=== PATIENT | male | born 1990 | race Caucasian/White ===

== ENCOUNTER 2020-05-12 17:13 | Emergency (ER) | payer OTHER, SELFPAY ==
[2020-05-12 17:11] VITALS: BP 151/96; PULSE 114; RESP 25; TEMP 36.4; O2SAT 97
[2020-05-12 17:21] VITALS: RESP 17
--- NOTE | 2020-05-12 17:21 | ED_ITS ---
HPI - Overdose General Chief Complaint: Overdose Stated Complaint: unresponsive History of Present Illness HPI Narrative: Found unresponsive in a car. Given narcan, 4 mg intranasal and 4 mg IV. On arrival to the ED he admits to putting a bag of heroin in his rectum. He denies trying to harm himself. Related Data Home Medications Medication Instructions Recorded Confirmed No Home Medications 05/12/20 05/12/20 Allergies Allergy/AdvReac Type Severity Reaction Status Date / Time No Known Allergies Allergy Unverified 09/23/13 14:24 Review of Systems Review of Systems: All systems reviewed & are unremarkable except as noted in HPI and below Cardiovascular: Cardiovascular: Denies chest pain Respiratory: Respiratory: Denies dyspnea Gastrointestinal: Gastrointestinal: Denies abdominal pain and Denies nausea PMFSH Past Medical History Medical History (Updated 05/13/20 @ 00:00 by Alli Gonzáles) Heroin abuse Social History Social History (Updated 05/12/20 @ 17:29 by Yusef Cruz MD) Substance use: current Substance use type: heroin Exam Const: General: alert Nutritional Appearance: well nourished HENMT: Other: abrasions to the right forehead Eyes: Pupils: Equal, round and reactive pupils present Resp: Effort & Inspection: normal respiratory effort Auscultation: clear to auscultation bilaterally Cardio: Rate: tachycardic Rhythm: regular rhythm GI: GI Palp: Yes Soft to palpation and No Tenderness to palpation present (GI) Neuro: General: moves all extremities and CN's II-XI intact bilaterally Other: mumbled difficult to understand speech Extrem: General: normal to inspection Course Vital Signs Vital signs: Vital Signs Temperature 36.4 C 05/12/20 17:11 Pulse Rate 114 H 05/12/20 17:11 Respiratory Rate 25 H 05/12/20 17:11 Blood Pressure 151/96 H 05/12/20 17:11 Pulse Oximetry 97 05/12/20 17:11 Temperature 36.4 C 05/12/20 17:11 Pulse Rate 115 H 05/12/20 19:11 Respiratory Rate 18 05/12/20 19:11 Blood Pressure 147/94 H 05/12/20 19:11 Pulse Oximetry 95 05/12/20 19:11 MDM - Overdose MDM Narrative Medical decision making narrative: He was able to extract the heroin under supervision. It was collected and given to security. Medical Records Attestation: I reviewed the patient's medical records. Lab Data Attestation: I reviewed the patient's lab results. Discharge Plan Discharge Clinical Impression: Heroin overdose Patient Disposition: Home, Self-Care Condition: Stable Instructions: Adult Overdose (ED) Prescriptions: No Action No Home Medications RF: 0 Follow-up/Referrals: Jake Saeed MD [Physician] - PHYSICIAN,BUSINESS INFORMATION ANALYST [Primary Care Provider] -
--- NOTE | 2020-05-12 17:23 | PC.NURSE ---
PT HAS SUCCESSFULLY SELF REMOVED HEROINE BAGGY FROM HIS RECTUM AT THIS TIME, RN SUSHILA, MYSELF, BRAN SOL AND RIMMA SMART AT BEDSIDE.
[2020-05-12 17:43] VITALS: BP 160/100; PULSE 116; RESP 16; O2SAT 100
[2020-05-12 19:11] VITALS: BP 147/94; PULSE 115; RESP 18; O2SAT 95
== END 2020-05-12 19:12 | disposition home or self-care (01) ==
PROVIDERS: Emergency Provider Emergency Medicine
DX: T40.1X1A Poisoning by heroin, accidental (unintentional), initial encounter (principal)
CPT/HCPCS: 99281

== ENCOUNTER 2020-10-07 15:52 | Emergency (ER) | payer OTHER, SELFPAY ==
--- NOTE | 2020-10-07 16:04 | ED.URI ---
HPI - URI/Sore Throat General Chief Complaint: Upper Respiratory Infection Stated Complaint: Body Fatigue,Fever Source: patient Mode of arrival: ambulatory Limitations: no limitations History of Present Illness HPI Narrative: Patient is a 30-year-old male who presents complaining of sore throat, body aches, congestion, fever and malaise x2 days. Patient has no known exposure to Covid does work out the home. He denies taking [id number] meds for symptom relief at this time. He denies significant medical history. MD elicited complaint: fever, sore throat and nasal congestion Related Data Allergies Allergy/AdvReac Type Severity Reaction Status Date / Time No Known Allergies Allergy Unverified 09/23/13 14:24 Review of Systems Review of Systems: Narrative: CONSTITUTIONAL: Reports fever, chills, and generalized body aches EYES: Denies visual changes, redness, or discharge. ENT: Reports congestion and sore throat. CARDIOVASCULAR: Denies chest pain, palpitations, or edema. RESPIRATORY: Denies cough or dyspnea. GASTROINTESTINAL: Denies abdominal pain, nausea, vomiting, or diarrhea. GENITOURINARY: Denies dysuria or hematuria. SKIN: Denies rash or itching. MUSCULOSKELETAL: Denies back pain, joint pain, or myalgia. NEUROLOGIC: Denies headache, numbness, dizziness, or weakness. PSYCHIATRIC: Denies anxiety or depression. PMFSH Past Medical History Medical History Heroin abuse Surgical History Surgical History No significant past surgical history Family History Family History (Updated 10/07/20 @ 16:07 by KARTHIKEYAN Sifuentes) Other No significant family history Social History Social History (Updated 10/07/20 @ 16:08 by KARTHIKEYAN Sifuentes) Smoking status: Current every day smoker Alcohol intake: current Substance use: current Substance use type: marijuana and heroin Living arrangements: homeless Occupation/Education: occupation Comments At the time of signature, I have reviewed and agree with nursing past medical, surgical, social, and family history unless otherwise noted. Please see nursing chart for further information. There is no relevant family history pertinent to the presenting complaint. Exam Narrative: Exam Narrative: GENERAL: Well-appearing, well-nourished, and in no acute distress. HEAD: Normocephalic, atraumatic. EYES: EOMI. No redness or drainage. Conjunctiva are normal. ENT: Mucous membranes pink and moist. Nares clear. No rhinorrhea. Throat normal. CHEST: No respiratory distress. HEART: Regular rate and rhythm. EXTREMITIES: Normal range of motion. No edema. SKIN: Warm, dry, no rash. NEURO: No focal deficits. Alert and oriented x3. Gait steady. PSYCH: Normal affect. No signs of depression or anxiety. Course Vital Signs Vital signs: Vital Signs Temperature 38.1 C H 10/07/20 16:13 Pulse Rate 101 H 10/07/20 16:13 Respiratory Rate 16 10/07/20 16:13 Blood Pressure 133/88 10/07/20 16:13 Pulse Oximetry 98 10/07/20 16:13 Temperature 38.1 C H 10/07/20 16:13 Pulse Rate 101 H 10/07/20 16:13 Respiratory Rate 16 10/07/20 16:13 Blood Pressure 133/88 10/07/20 16:13 Pulse Oximetry 98 10/07/20 16:13 Reviewed. Patient has been instructed to follow-up with his PCP regarding his blood pressure. MDM - URI/Sore Throat MDM Narrative Medical decision making narrative: Patient's rapid Covid negative in urgent care. PCR sent at this time. Discussed with patient the possibility of Covid and the need for quarantine. Patient to be given Zofran for nausea. Education on symptomatic treatment and good hydration. Patient agrees with plan of care. Patient stable for discharge home with outpatient follow-up as needed. Differential Diagnosis Differential diagnosis: Likely upper respiratory infection, viral infection, influenza and pharyngitis Lab Data
[2020-10-07 16:13] VITALS: BP 133/88; PULSE 101; RESP 16; TEMP 38.1; O2SAT 98
[2020-10-08 19:08] LABS: SARS-CoV-2 RNA PCR Negative
== END 2020-10-07 16:39 | disposition home or self-care (01) ==
PROVIDERS: Emergency Provider Nurse Practitioner
DX: J06.9 Acute upper respiratory infection, unspecified (principal); Z20.822 Contact with and (suspected) exposure to COVID-19; F17.200 Nicotine dependence, unspecified, uncomplicated
CPT/HCPCS: 87426; 99213; C9803; G0463; U0003; U0005

== ENCOUNTER 2022-01-08 00:09 | Emergency (ER) | payer OTHER, SELFPAY ==
--- NOTE | 2022-01-08 00:45 | PC.NURSE ---
Pt did not wish to wait any longer. Left after being triaged. Time 0049
== END 2022-01-08 00:40 | disposition left against medical advice (07) ==
LOC: ANHED 00:47
DX: Z53.21 Procedure and treatment not carried out due to patient leaving prior to being seen by health care provider (principal)
CPT/HCPCS: 99199

== ENCOUNTER 2022-01-08 14:22 | Emergency (ER) | payer OTHER, SELFPAY ==
--- NOTE | ~2022-01-08 | XR_ITS ---
EXAMINATION: XR femur LT min 2V INDICATION: Left leg pain TECHNIQUE: Two views of the left femur are obtained on four radiographs. COMPARISON: None available FINDINGS: There is a 2 mm linear radiopaque foreign body projecting in the posteromedial subcutaneous tissues overlying the distal femur approximately 16 cm above the knee joint. There is no fracture. B one alignment is normal. The joint spaces are normal. IMPRESSION: 1. 2 mm radiopaque foreign body projecting in the posteromedial subcutaneous tissues of the distal fe mur. Reviewed, dictated and finalized at location F. IMPRESSION: 1. 2 mm radiopaque foreign body projecting in the posteromedial subcutaneous ti ssues of the distal femur.
[2022-01-08 14:36] VITALS: BP 153/76; PULSE 104; RESP 20; TEMP 36.2; O2SAT 100
--- NOTE | 2022-01-08 14:38 | ED.LOWEXIN ---
HPI - Extremity Injury (Lower) General Chief Complaint: Extremity Injury, Lower Stated Complaint: Lump on leg Time Seen by Provider: 01/08/22 14:38 Source: patient and RN notes reviewed Mode of arrival: ambulatory Limitations: no limitations History of Present Illness HPI Narrative: 31-year-old male presents to [facility] with complaints of a foreign body on the medial aspect left mid thigh. Patient reports that he was camping and was chopping wood when something went into his thigh. Significant bruising noted in the surrounding area with a swelling and firm area about 2 CM above puncture wound. States that he was camping on Wednesday, 5 days ago Onset (ago): day(s) (5) Related Data Allergies Allergy/AdvReac Type Severity Reaction Status Date / Time No Known Allergies Allergy Verified 01/08/22 14:36 Review of Systems Review of Systems: All systems reviewed & are unremarkable except as noted in HPI and below Constitutional: Constitutional: Reports no additional constitutional complaints, Denies chills and Denies fever(s) Eyes: Eyes: Reports no additional eye complaints ENT: Reports system reviewed and no additional complaints, except as documented Cardiovascular: Cardiovascular: Reports no additional cardiovascular complaints Respiratory: Respiratory: Reports no additional respiratory complaints Gastrointestinal: Gastrointestinal: Reports no additional gastrointestinal complaints Musculoskeletal: Musculoskeletal: Reports no additional musculoskeletal complaints Integumentary/Breasts: Skin/Breast: Reports as per HPI Neurologic: Reports system reviewed and no additional complaints, except as documented Psychiatric: Psychiatric: Reports no additional psychiatric complaints Allergic/Immunologic: Allergic/Immunologic: Reports no additional allergic/immunologic complaints PMFSH Past Medical History Medical History Heroin abuse Surgical History Surgical History No significant past surgical history Family History Family History Other No significant family history Social History Social History Smoking status: Current every day smoker Alcohol intake: current Substance use: current Substance use type: marijuana and heroin Comments At the time of my signature, I reviewed and agree with the nursing past medical, surgical, social, and family history. There is no relevant family history pertinent to the patient complaint. Exam Const: General: healthy appearing, no acute distress and alert Nutritional Appearance: well nourished Orientation/consciousness: patient oriented x3 Limitations: no limitations HENMT: Head: normal to inspection Ears: external ears normal Eyes: Pupils: Equal, round and reactive pupils present Neck: Neck: normal visual inspection, no lymphadenopathy and no meningeal signs Chest: Chest palpation & inspection: normal inspection of the chest Resp: Effort & Inspection: normal respiratory effort and no use of accessory muscles Auscultation: clear to auscultation bilaterally, no crackles, no rales, no rhonchi and no wheezes Cardio: Rate: regular rate Rhythm: regular rhythm Skin: General skin exam: normal color Rashes: no rashes Wounds: wounds noted Other: Puncture wound with surrounding bruising noted medial aspect left thigh. 2 cm above puncture wound minor swelling. No fluctuance, no increased redness or warmth Neuro: General: patient oriented x3, moves all extremities, no meningeal signs and no focal motor deficits Cranial nerves: Yes Equal, round and reactive pupils present Speech: normal speech Gait exam (Neuro): Normal gait present Extrem: General: normal to inspection Psych: Appearance: grossly normal and well kempt Mental Status: mental st
[2022-01-08] MEDS: TETANUS,DIPHTHERIA,AC PERTUSSIS ADULT (0.5 ML) BOOSTRIX IM (14:59)
== END 2022-01-08 15:26 | disposition home or self-care (01) ==
PROVIDERS: Emergency Provider Nurse Practitioner
DX: S71.142A Puncture wound with foreign body, left thigh, initial encounter (principal); X58.XXXA Exposure to other specified factors, initial encounter; Z23 Encounter for immunization; F17.200 Nicotine dependence, unspecified, uncomplicated
CPT/HCPCS: 73552; 90471; 90715; 99213; G0463

== ENCOUNTER 2023-03-01 06:13 | Observation (INO) | payer OTHER, SELFPAY ==
[2023-03-01] VITALS (15 sets, daily range): BP systolic 119–176; BP diastolic 73–103; PULSE 118–125; RESP 22–30; TEMP 36.9; O2SAT 99–100
--- NOTE | ~2023-03-01 | XR_ITS ---
XR chest 1V portable 03/01/2023 07:37 Indication: Hypoxia Procedure: AP portable chest Comparison: No prior studies for comparison. Findings: Shallow inspiration with crowding of the pulmonary vessels. No focal air space disease, pul monary edema, pleural effusion or suspected pneumothorax. No acute osseous abnormality. Impression: 1: No acute cardiopulmonary disease. Reviewed, dictated and finalized at location A. Impression: 1: No acute cardiopulmonary disease.
--- NOTE | ~2023-03-01 | CT_ITS ---
EXAMINATION: CT BRAIN W/O DATE: 03/01/2023 06:45 INDICATION: Altered mental status. TECHNIQUE: Computed tomography (CT) of the head was performed without intravenous contrast. The dose- length product was 1362.00 mGy-cm. Automated exposure control and iterative reconstruction technique were employed. COMPARISON: No prior studies for comparison. FINDINGS: Study limited by motion artifact. Normal brain parenchymal volume for age. Normal shah-whit e differentiation. No acute intracranial hemorrhage, infarction, mass or mass effect. No ventriculomegaly or midline shift. Midline sagittal images demonstrate a normal corpus callosum, c raniovertebral junction and sella turcica. Basilar cisterns are patent. Paranasal sinuses and mastoids are pneumatized. No depressed skull fractures. IMPRESSION: 1. No acute intracranial abnormality. Reviewed, dictated and finalized at location A.
--- NOTE | 2023-03-01 06:20 | ECG_ITS ---
Measurements Intervals [place] Rate: 123 P: [place]: 0 QRS: 100 QRSD: 118 T: -4 QT: 315 QTc: 451 Interpretive Statements SINUS TACHYCARDIA RIGHT AXIS DEVIATION INTRAVENTRICULAR CONDUCTION DELAY DELAYED PRECORDIAL R/S TRANSITION MINIMAL Q WAVES- INFERIOR LEADS BORDERLINE ST-T WAVE ABNORMALITY- INFERIOR LEADS ABNORMAL ECG NO PREVIOUS ECG AVAILABLE FOR COMPARISON Electronically Signed On 03-01-2023 6:53:07 CDT by Walter Conte D.O.
--- NOTE | 2023-03-01 06:21 | ED.AMS ---
HPI - Altered Mental Status General Chief Complaint: Altered Mental Status <Irving Flower MD - Last Filed: 03/01/23 06:52> Stated Complaint: AMS <Irving Flower MD - Last Filed: 03/01/23 06:52> Time Seen by Provider: 03/01/23 06:20 <Irving Flower MD - Last Filed: 03/01/23 06:52> History of Present Illness HPI narrative: HPI limited due to patient's altered mental status. This is a 32-year-old male, brought in by EMS from home for reported seizure-like activity. EMS reports they were called to the patient's home for seizure. On arrival, the patient was reportedly not exhibiting seizure-like activity but did appear intoxicated. EMS reports family members note the patient admitted using meth earlier this evening. EMS reports the patient was moving all 4 limbs. He made incomprehensible verbal responses to voice. He was combative with EMS on scene. He was given 10 mg IM Versed with sedation. At the time he was noted to be satting 88% on room air. He was started 12 L by nonrebreather with improvement to the high 90s. <Irving Flower MD - Last Filed: 03/01/23 06:52> Related Data Allergies/Adverse Reactions: Allergies Allergy/AdvReac Type Severity Reaction Status Date / Time No Known Allergies Allergy Verified 03/01/23 06:18 <Irving Flower MD - Last Filed: 03/01/23 06:52> Review of Systems Review of Systems: Unable to obtain review of systems due to altered mental status <Irving Flower MD - Last Filed: 03/01/23 06:52> [facility] Past Medical History Medical History: Medical History Heroin abuse <Irving Flower MD - Last Filed: 03/01/23 06:52> Surgical History Surgical History: Surgical History No significant past surgical history <Irving Flower MD - Last Filed: 03/01/23 06:52> Family History Family History: Family History Other No significant family history <Irving Flower MD - Last Filed: 03/01/23 06:52> Social History Social History: Social History Smoking status: Current every day smoker Alcohol intake: current Substance use: current Substance use type: marijuana and heroin Living arrangements: homeless Occupation/Education: occupation Gender identity (if verbalized by the patient): Male <Irving Flower MD - Last Filed: 03/01/23 06:52> Exam Narrative: GENERAL: Well-developed, well-nourished, sonorous breathing pattern, appears sedated HEAD: Normocephalic, atraumatic. EYES: Pupils equal, 3 mm and sluggishly reactive to light bilaterally ENT: Nares clear, no rhinorrhea or epistaxis. Mucous membranes moist. Oropharynx without erythema NECK: Supple. CHEST: Clear to auscultation. Transmitted sonorous upper airway sounds. Tachypneic. No wheezes rales or rhonchi HEART: Regular rate and rhythm. No murmur heard. Normal peripheral pulses. ABDOMEN: Soft, nontender, nondistended, normal active bowel sounds. : Circumcised. Normal external male genitalia. Normal-appearing scrotum. Perineum appears normal. EXTREMITIES: Scattered, healing wounds on the bilateral forearms consistent with IV drug use. No peripheral edema SKIN: A 1 cm healing laceration is noted over the dorsal aspect of the right MCP. There are scattered punctate ecchymoses noted over the bilateral arms and legs. Warm, dry, no rash. NEURO: The patient spontaneously moves all 4 limbs, though also demonstrates posturing <Irving Flower MD - Last Filed: 03/01/23 06:52> Course Course Emergency Course: 06:45 - White blood cell count 19. Will add IV antibiotics for community-acquired pneumonia. I reviewed with the patient CT head is not concerning for intracranial hemorrhage. 07:00 - Patient sig
[2023-03-01 06:30] LABS: Glucose Point of Care 124 mg/dl (65-105)
[2023-03-01 06:33] LABS: Basophils Absolute Auto 0.1 K/mm3 (0.0-0.1); Basophils Percent Auto 0.4 % (0.2-1.2); Eosinophils Absolute Auto 0.1 K/mm3 (0-0.3); Eosinophils Percent Auto 0.6 % (0-4.4); Hematocrit 41.3 % (42.0-52.0); Hemoglobin 13.6 g/dL (14.0-18.0); Immature Granulocyte Absolute 0.06 K/mm3 (0.00-0.031); Immature Granulocyte Percent A 0.3 % (0-0.5); Lymphocytes Absolute Auto 2.37 K/mm3 (0.9-3.2); Lymphocytes Percent Auto 12.5 % (18.3-44.2); Mean Corpuscular HGB Conc 32.9 g/dl (32-36); Mean Corpuscular Hemoglobin 26.5 pg (26-34); Mean Corpuscular Volume 80.5 fl (80-100); Mean Platelet Volume 9.6 fl (7.4-10.4); Monocytes Absolute Auto 1.7 K/mm3 (0.1-0.6); Neutrophils Absolute Auto 14.7 K/mm3 (1.3-6.7); Neutrophils Percent Auto 77.2 % (45.5-73.1); Platelet Count Result 282 k/mm3 (150-375); Red Blood Count 5.13 M/mm3 (4.6-6.20); Red Cell Distribution Width 14.6 % (11.5-14.5)
[2023-03-01] MEDS: SODIUM CHLORIDE 0.9% IV 1,000 ML 999 ML IV CONT ×2 (06:35→07:35)
[2023-03-01 06:44] LABS: INR 1.1; Lactic Acid Reflex 0.9 mmol/L (0.7-2.0); Prothrombin Time 14.2 Seconds (11.1-14.7)
[2023-03-01 06:46] LABS: Acetaminophen < 10 ug/mL (10-30); Ethanol < 10 mg/dL (<10); Salicylate < 1.0 mg/dL (2-20)
[2023-03-01 06:49] LABS: Appearance Urine Clear (Clear); Bacteria Urine None Seen /hpf; Bilirubin Urine Negative (Negative); Blood Urine Negative (Negative); Color Urine Yellow (Yellow); Glucose Urine UA Negative (Negative); Ketones Urine Negative (Negative); Leukocyte Esterase Ur Negative LEU/UL (Negative); Nitrate Urine Negative (Negative); Non Pathogenic Casts 0-2; Protein Urine 1+ mg/dL (Negative); RBC Urine 0-2 /hpf (0-2); Specific Grav Ur 1.019 (1.001-1.035); Squamous Epithelial Cell Urine None seen /hpf (Few); Urobilinogen Urine 0.2 mg/dL (<2.0); WBC Urine 0-5 /hpf
[2023-03-01 06:49] LABS: Alanine Aminotransferase 37 U/L (6-50); Albumin Level 4.4 g/dL (3.5-5.1); Alkaline Phosphatase 42 U/L (38-126); Anion Gap 13 mmol/L (8-16); Aspartate Amino Transferase 68 U/L (17-59); Bilirubin,Total 0.9 mg/dL (0.2-1.3); Blood Urea Nitrogen 13 mg/dL (9-20); Calcium 8.9 mg/dL (8.4-10.2); Carbon Dioxide 25 mmol/L (22-30); Chloride 107 mmol/L (98-107); Creatine Kinase 1560 U/L (55-170); Estimated CRCL calculation 99 ml/min; Estimated Glomerular Filt Rate > 60; Glucose 121 mg/dL (65-110); Potassium 4.1 mmol/L (3.4-5.0); Sodium 145 mmol/L (137-145)
[2023-03-01 06:51] LABS: Add Urine Microscopic? YES
[2023-03-01] MEDS: cefTRIAXone 2 GM/NS 100 ML 2 GM/100 ML BAG IVPB (06:54)
[2023-03-01 07:01] LABS: Troponin I < 0.012 ng/mL (0.000-0.034)
[2023-03-01] MEDS: MIDAZOLAM HCL (*CRX) 2 MG/2 ML VIAL IV PUSH ×2 (07:09→07:33)
--- NOTE | 2023-03-01 07:30 | PC.NURSE ---
Pt agitated and thrashing in bed. Attempting to pull at IV lines. Bilateral soft wrist restraints applied.
[2023-03-01] MEDS: AZITHROMYCIN 500 MG/NS 250 ML 500 MG/250 ML BAG 250 MG IVPB (07:33)
[2023-03-01] MEDS: MIDAZOLAM HCL (*CRX) 2 MG/2 ML VIAL 4 MG IV PUSH (08:07)
[2023-03-01 08:18] LABS: Barbiturate Screen Urine Negative (Negative); Benzodiazepines Screen Urine Positive (Negative)
[2023-03-01 08:19] LABS: Cannabinoid Screen Urine Positive (Negative); Cocaine Screen Urine Negative (Negative); Methadone Screen Urine Negative (Negative); Opiate Screen Urine Negative (Negative); Phencyclidine Screen Urine Negative (Negative)
[2023-03-01 09:35] LABS: Amphetamine Screen Urine Positive (Negative)
--- NOTE | 2023-03-01 09:39 | PC.NURSE ---
Recived pt to icu bed 9, pt not breathing, transfered pt to bed cpr and code called at this time, see code sheet
--- NOTE | 2023-03-01 09:46 | WPDPROCEDUR ---
Procedures Intubation Intubation Date: 03/01/23 Intubation Time: 08:52 Consent: Emergent intubation during code blue Sedative: none Laryngoscope: fiber optic video scope Assist device used: fiber optic device ET tube size: 8 Tube secured depth (cm): 24 Tube secured location: lips Tube placement confirmation: visualized tube passing through cords, equal breath sounds bilaterally, no breath sounds over epigastrium and confirmation by capnometry Patient tolerated procedure: well Intubation complications: none
--- NOTE | 2023-03-01 09:52 | P.CODEBLUE_ITS ---
Code Blue Note Code Blue Note Time Arrived at Code Blue: 0844 Initial Rhythm on Arrival: PEA with agonal breathing Airway Management: Pt intubated during resuscitation Chest Compressions: Initiated upon arrival Result of Code Blue: Pt Cardiac Rhythm Post Code: PEA Code Blue Summary: Patient arrived from the ED to the ICU at 8:44 a.m. while there were transporting the patient from the [facility] to the ICU bed the nurse noted that he did not have a pulse and had agonal breathing. Around 8:45 a.m. bag-mask ventilation and CPR was initiated, emy chin was called, ACLS protocol was instituted. Patient received epinephrine, bicarb, calcium, dextrose, flumazenil, Narcan. Please review code blue documentation for further details patient was intubated at 8:52 a.m. patient remained in PEA arrest the entire duration of the code which ended at 9:26 a.m. after discussing with the family. Family. which included the , father and mother of the patient present in the room during the later stages of the code. Time of 9:26 a.m. on 03/01/2023
--- NOTE | 2023-03-01 10:52 | P.PNCROSS_ITS ---
Event Note Event Note Event Note: Consult was not as patient was in cardiac arrest upon arrival to the ICU and ex pired after efforts were terminated.
--- NOTE | 2023-03-01 10:56 | PM.IMHP ---
H&P: HPI History of Present Illness Date/Time: 03/01/23 10:56 Chief Complaint: Seizure unresponsive Narrative: Patient is unresponsive, history is taken from ER physician 32-year-old gentleman with history of polysubstance abuse, brought to ED because of altered mental status. EMS was called because of a suspected seizure. Upon arrival, patient was not exhibiting seizure activity, but appear intoxicated. And patient used meth yesterday per family's report. Patient was able move all extremities, unable to may need comprehensive verbal response., and patient was combative with EMS on the scene. Patient was given Versed 10 mg IM full sedation. And patient also notice have resolved failure, pulse ox 88 on room air, patient will placed on non-rebreather with start L oxygen, or pulse ox less improved to 90 %. And patient was brought to ED for evaluation. In the ED, patient was found to have tachycardia tachypnea, leukocytosis, respiratory failure, patient was placed on BiPAP. Patient was also found have a positive drug screening with math benzodiazepine and marijuana. Patient was placed on BiPAP. Patient also received at thoracis ceftriaxone and switched to Unasyn per straightening press operator helper request because of a suspected aspiration pneumonia. On arrival to the ICU. Patient was found pulseless and angonal breathing. Patient was ventilated with a back mass, CPR was initiated immediately, code blue also initiated. To resuscitation, patient received aspirin, bicarbonate, calcium, dextrose, flumazenil, Narcan. Patient remained PA. the entire duration of the code was about 45 mins. The resuscitation was stopped after straightening press operator helper discussing with family, which included the , father and mother of the patient present in the room during the later stages of the code. Review of Systems Review of Systems: Unresponsive, unable to rule system PMFSH Past Medical History Medical History Heroin abuse Surgical History Surgical History No significant past surgical history Family History Family History Other No significant family history Social History Social History Smoking status: Current every day smoker Alcohol intake: current Substance use: current Substance use type: marijuana and heroin Living arrangements: homeless Occupation/Education: occupation Gender identity (if verbalized by the patient): Male Meds Home Medications and Allergies Allergies Allergy/AdvReac Type Severity Reaction Status Date / Time No Known Allergies Allergy Verified 03/01/23 06:18 Vital Signs Vital Signs - 24 hr 03/01/23 06:14 03/01/23 06:40 03/01/23 06:25 Temperature 98.5 F Pulse Rate 124 H 124 H 123 H Respiratory Rate 29 H 29 H Blood Pressure 176/103 H Pulse Oximetry 100 Oxygen Delivery Non-Rebreather Mask Oxygen Flow Rate 15 03/01/23 06:30 03/01/23 06:31 03/01/23 06:53 Temperature Pulse Rate 125 H 124 H 124 H Respiratory Rate 29 H 27 H 27 H Blood Pressure 172/102 H Pulse Oximetry 100 100 100 Oxygen Delivery Oxygen Flow Rate 03/01/23 07:00 03/01/23 07:12 03/01/23 07:15 Temperature Pulse Rate 124 H 124 H 124 H Respiratory Rate 27 H 30 H 24 H Blood Pressure 156/101 H Pulse Oximetry 99 Oxygen Delivery Oxygen Flow Rate 03/01/23 07:32 03/01/23 07:45 03/01/23 07:46 Temperature Pulse Rate 124 H 122 H 121 H Respiratory Rate 25 H 27 H 27 H Blood Pressure 125/79 Pulse Oximetry 100 Oxygen Delivery Oxygen Flow Rate 03/01/23 08:00 03/01/23 08:33 03/01/23 08:36 Temperature 98.5 F 98.5 F Pulse Rate 125 H 118 H 118 H Respiratory Rate 22 H 22 H Blood Pressure 119/73 119/73 Pulse Oximetry 100 100 Oxygen Delivery Non-Rebreather Mask
--- NOTE | 2023-03-01 12:57 | PM.DS ---
DS: Admitting Diagnosis Discharge Date 03/01/23 Admitting Diagnosis ?Qualifiers: ?Altered mental status type:?unspecified? Qualified Code(s):?R41.82 - Altered mental status, unspecified ?Code(s): R41.82 - Altered mental status, unspecified ?Status:?Acute (2) Hypoxia: ?Code(s): R09.02 - Hypoxemia ?Status:?Acute (3) Acute drug overdose: ?Code(s): T50.901A - Poisoning by unspecified drugs, medicaments and biological substances, accidental (unintentional), initial encounter ?Status:?Acute (4) Cardiopulmonary arrest: ?Code(s): I46.9 - Cardiac arrest, cause unspecified ?Status:?Acute (5) Encephalopathy, toxic: ?Code(s): G92.9 - Unspecified toxic encephalopathy ?Status:?Acute DS: Discharge Diagnosis Discharge Diagnosis (1) Altered mental status: Qualifiers: Altered mental status type: unspecified Qualified Code(s): R41.82 - Altered mental status, unspecified Code(s): R41.82 - Altered mental status, unspecified Status: Acute (2) Hypoxia: Code(s): R09.02 - Hypoxemia Status: Acute (3) Acute drug overdose: Code(s): T50.901A - Poisoning by unspecified drugs, medicaments and biological substances, accidental (unintentional), initial encounter Status: Acute (4) Cardiopulmonary arrest: Code(s): I46.9 - Cardiac arrest, cause unspecified Status: Acute (5) Encephalopathy, toxic: Code(s): G92.9 - Unspecified toxic encephalopathy Status: Acute DS: Summary Hospital Course Reason for hospitalization: Seizure unresponsive Hospital Course: Patient was brought in the hospital unresponsive, likely toxic encephalopathy due to overdose of methamphetamine benzodiazepine, marijuana. Patient also found to have acute respiratory failure, likely secondary to drug overdose and aspiration. Patient was treated with BiPAP, and antibiotics, fluid resuscitation. Patient condition deteriorated quickly, developed cardiopulmonary arrest. Resuscitation was started immediately. And resuscitation lasted about 45 minutes, no ROCS was achieved. SPOUTING INSTALLER DISCUSSED WITH THE PATIENT FAMILY, RESUSCITATION WAS STOPPED. PATIENT Time Spent with Patient Time attestation: Total time spent providing and/or coordinating discharge services: Exam Narrative: Patient DS: Data Data Completed and Pending Labs on day of discharge: Labs from last 24 hours 03/01/23 03/01/23 03/01/23 06:34 06:26 06:23 WBC 19.0 H RBC 5.13 Hgb 13.6 L Hct 41.3 L MCV 80.5 MCH 26.5 MCHC 32.9 RDW 14.6 H Plt Count 282 MPV 9.6 Immature Gran % (Auto) 0.3 Neut % (Auto) 77.2 H Lymph % (Auto) 12.5 L [place] % (Auto) 9.0 H Eos % (Auto) 0.6 Baso % (Auto) 0.4 Lymph # (Auto) 2.37 [place] # (Auto) 1.7 H Eos # (Auto) 0.1 Baso # (Auto) 0.1 Abs Immat Gran (auto) 0.06 H Absolute Neuts (auto) 14.7 H Absolute Nucleated RBC 0.0 Nucleated RBC % 0.0 PT 14.2 INR 1.1 Sodium 145 Potassium 4.1 Chloride 107 Carbon Dioxide 25 Anion Gap 13 BUN 13 Creatinine 1.00 Estim Creat Clear Calc 99 Estimated GFR > 60 Glucose 121 H POC Capillary Glucose 124 H Lactic Acid 0.9 Calcium 8.9 Total Bilirubin 0.9 AST 68 H ALT 37 Alkaline Phosphatase 42 Total Creatine Kinase 1560 H Troponin I < 0.012 Total Protein 7.0 Albumin 4.4 Urine Color Yellow Urine Appearance Clear Urine pH 5.0 Ur Specific [place] 1.019 Urine Protein 1+ H Urine Glucose (UA) Negative Urine Ketones Negative Ur Blood (Man) Negative Urine Nitrate Negative Urine Bilirubin Negative Urine Urobilinogen 0.2 Leukocyte Esterase Rfl Negative Urine RBC 0-2 Urine WBC 0-5 Ur Squamous Epith Cells None seen Urine Bacteria None seen Urine Casts 0-2 Salicylates < 1.0 L Urine Opiates Screen
--- NOTE | 2023-03-01 13:07 | P.DN_ITS ---
Discharge Summary Date and Time Date of : 03/01/23 Time of : 09:26 Provider Pronounced By: Dr. Sanchez Probable Cause of Probable Cause of : Cardiopulmonary arrest due to drug overdose Summary Hospital Course: 32-year-old gentleman with history of polysubstance abuse, brought to ED because of altered mental status.? EMS was called because of a suspected seizure.? Upon arrival, patient was not exhibiting seizure activity, but appear intoxicated.? And patient used meth yesterday per family's report.? Patient was able move all extremities, unable to may need comprehensive verbal response., and patient was combative with EMS on the scene.? Patient was given Versed 10 mg IM full sedation.? And patient also notice have resolved failure, pulse ox 88 on room air, patient will placed on non-rebreather with start L oxygen, or pulse ox less improved to 90 %.? And patient was brought to ED for evaluation.? In the ED, patient was found to have tachycardia tachypnea, leukocytosis, respiratory failure, patient was placed on BiPAP.? Patient was also found have a positive drug screening with math benzodiazepine and marijuana.? Patient was placed on BiPAP.? Patient also received at thoracis ceftriaxone and switched to Unasyn per computing services director request because of a suspected aspiration pneumonia.? On arrival to the ICU.? Patient was found pulseless and angonal breathing.? Patient was ventilated with a back mass, CPR was initiated immediately, code blue also initiated.? To resuscitation, patient received aspirin, bicarbonate, calcium, dextrose, flumazenil, Narcan.? Patient remained PA. the entire duration of the code was about 45 mins.? The resuscitation was stopped after computing services director discussing with family,? which included the , father and mother of the patient present in the room during the later stages of the code. Additional Data Confirmation of as documented by pronouncing clinician: Pupillary Reflex, Palpable Pulses, Response to Stimuli, Heart Tones and Breath Sounds Name of Provider Notified: Dr. Rosas Time Provider Notified: 09:30 Provider Requests Autopsy: No Family Requests Autopsy: No Duplicator Punch Operator Notified: Yes Date [facility] Notified of : 03/01/23 Time [facility] Notified of : 10:02
--- NOTE | 2023-03-01 14:16 | PC.NURSE ---
Received phone call from Anton Ryan (patient's ), called ICU after speaking with Principal Product Manager requesting an autopsy. Explained process of obtaining an autopsy to Anton and provided phone numbers for [facility] Pathology department, as well as [facility] when hospital medical records were requested. Spoke to [facility] and advised them of the delay in releasing the patient's body due to the new request for an autopsy. Spoke to Valerie, patient's mother, who also signed the release of body form. Confirmed that Anton should be the contact and is responsible for consenting to the release of body. Valerie confirmed that Anton is the legal spouse and decision maker and that she should be signing for the release of the body. Valerie stated that she was going to speak to Anton regarding the autopsy and would call back up to the hospital. Received a phone call back from Valerie. Valerie stated that she spoke to Anton and that Anton is now consenting to releasing the body to the home. Call placed to Anton to verify that she was consenting to release the body to [facility]. Release of body form was updated to reflect Anton as the next of kin. Conversations and form correction witnessed by Padmini Dunbar RN.
== END 2023-03-01 11:29 | disposition expired ==
LOC: ANHED 07:38 → ANHICU 08:23
PROVIDERS: Preventive Medicine Aerospace Medicine; Admitting Provider Hospitalist; Emergency Provider Emergency Medicine; Visit Provider Hospitalist
DX: I46.9 Cardiac arrest, cause unspecified (principal); T43.651A Poisoning by methamphetamines accidental (unintentional), initial encounter; R41.82 Altered mental status, unspecified; R09.02 Hypoxemia; R00.0 Tachycardia, unspecified; R06.82 Tachypnea, not elsewhere classified; R94.31 Abnormal electrocardiogram [ECG] [EKG]; J18.9 Pneumonia, unspecified organism; D72.829 Elevated white blood cell count, unspecified; Z59.00 Homelessness unspecified; F17.210 Nicotine dependence, cigarettes, uncomplicated; F10.90 Alcohol use, unspecified, uncomplicated; Y90.0 Blood alcohol level of less than 20 mg/100 ml; F12.90 Cannabis use, unspecified, uncomplicated; F11.10 Opioid abuse, uncomplicated
CPT/HCPCS: 36415; 70450; 71045; 80053; 80307; 81001; 82550; 82948; 83605; 84484; 85025; 85610; 87040; 93005; 96365; 96367; 96375; 96376; 99291; G0378; G0379; J0171; J0456; J0696; J2250; J2310; J7030